=== PATIENT | female | born 1985 | race Caucasian/White ===

== ENCOUNTER 2020-05-04 09:06 | Outpatient (CLI) | payer BC ==
[2020-05-04] VITALS (17 sets, daily range): BP systolic 96–136; BP diastolic 65–101
== END 2020-05-04 23:59 | disposition home or self-care (01) ==
LOC: CARD DIAG 09:06
PROVIDERS: ATTEND Internal Medicine Interventional Cardiology
DX: R55 Syncope and collapse (principal); R42 Dizziness and giddiness
CPT/HCPCS: 93660